=== PATIENT | female | born 1975 | race Caucasian/White ===

== ENCOUNTER 2019-06-21 16:54 | Emergency (ER) | payer OTHER, SELFPAY ==
--- NOTE | ~2019-06-21 | CT_ITS ---
EXAMINATION: CT abdomen pelvis w con EXAM DATE: 06/21/2019 19:07 INDICATION: Nausea vomiting diarrhea. Right lower quadrant pain. TECHNIQUE: Spiral CT of the abdomen and pelvis was performed following intravenous injection of 100 m L Omnipaque 350. Axial, coronal and sagittal images were reviewed. The dose-length product (DLP) fo r this examination was 446.39 mGy-cm. The exposure was tailored according to patient size (auto mA e xposure control), and iterative reconstruction (ASIR) was used as additional dose reduction technique . There is no prior study for comparison. FINDINGS: The liver, spleen, adrenal glands and pancreas are unremarkable. Gallbladder is unremarkab le. No biliary obstruction. Portal and splenic veins are patent. Kidneys enhance symmetrically. T here is no hydronephrosis. The uterus is anteverted and morphologically normal. The bladder is un remarkable. There is no retroperitoneal or pelvic lymphadenopathy. There is mild scattered arterio sclerotic disease. The appendix is normal. The stomach and small bowel are unremarkable. There is expected amount of c olonic stool. No free intraperitoneal gas. The heart is normal in size. There are no pericardial or pleural effusions. The lung bases are unremarkable. There are no osteoblastic or osteolytic les ions identified. Fusion, laminectomies L5-S1. IMPRESSION: 1. No acute intra-abdominal findings. Reviewed, dictated and finalized at location A.
[2019-06-21 17:01] VITALS: BP 113/78; PULSE 80; RESP 18; TEMP 36.9; O2SAT 100
--- NOTE | 2019-06-21 17:14 | ED.NAVMDI ---
HPI - Nausea/Vomiting/Diarrhea General Chief complaint: Nausea/Vomiting/Diarrhea <Gris Muñiz PA-C - Last Filed: 06/21/19 20:33> Stated complaint: n/v/back pain <LUKAS Benson Last Filed: 06/21/19 20:33> Time Seen by Provider: 06/21/19 17:03 <LUKAS Benson Last Filed: 06/21/19 20:33> Source: patient <LUKAS Benson Last Filed: 06/21/19 20:33> Mode of arrival: ambulatory <LUKAS Benson Last Filed: 06/21/19 20:33> Limitations: no limitations <LUKAS Benson Last Filed: 06/21/19 20:33> History of Present Illness HPI Narrative: This is a 43 year old female that presents to the ER for N/V/D x 3 days. Reports it has been difficult for her to keep down any liquids or solids. Reports some right sided lower abdominal pain. Reports some chronic diarrhea due to IBS. Reports after she sneezed last night she started to have some right sided mid back pain that has been constant since. Worse with movement. Reports some pain with urination. Denies fever, hematochezia, or hematuria. <Gris Muñiz PA-C - Last Filed: 06/21/19 20:33> Related Data Allergies/Adverse reactions: Allergies Allergy/AdvReac Type Severity Reaction Status Date / Time doxycycline Allergy Mild Unknown Verified 06/21/19 17:25 <Gris Muñiz PA-C - Last Filed: 06/21/19 20:33> Review of Systems Review of Systems: Narrative: CONSTITUTIONAL: Denies fever, chills GASTROINTESTINAL: Reports abdominal pain, nausea, vomiting, and diarrhea. GENITOURINARY: Reports dysuria. Denies hematuria. MUSCULOSKELETAL: Reports back pain, joint pain, and myalgia. NEUROLOGIC: Denies numbness, or weakness. <LUKAS Benson Last Filed: 06/21/19 20:33> All systems reviewed & are unremarkable except as noted in HPI and below <LUKAS Benson Filed: 06/21/19 20:33> [facility] Past Medical History Medical History: Medical History (Updated 06/21/19 @ 19:56 by Gris Muñiz PA-C) Irritable bowel syndrome <Gris Muñiz PA-C - Last Filed: 06/21/19 20:33> Surgical History Surgical History: Surgical History (Updated 06/21/19 @ 17:15 by Gris Muñiz PA-C) History of spinal fusion History of tubal ligation <Gris Muñiz PA-C - Last Filed: 06/21/19 20:33> Social History Social History: Social History (Updated 06/21/19 @ 17:15 by Gris Muñiz PA-C) Smoking status: Current every day smoker Substance use: never Gender identity (if verbalized by the patient): Female <Gris Muñiz PA-C - Last Filed: 06/21/19 20:33> Exam Narrative: Exam Narrative: GENERAL: Well-appearing, well-nourished, and in no acute distress. HEAD: Normocephalic, atraumatic. EYES: EOMI. CHEST: Clear to auscultation. No respiratory distress. No wheezes rales or rhonchi HEART: Regular rate and rhythm. No murmur heard. Normal peripheral pulses. ABDOMEN: Soft, nondistended, normal active bowel sounds. Mild tenderness to palpation in the RLQ, without guarding EXTREMITIES: Normal range of motion. No edema. SKIN: Warm, dry, no rash. NEURO: No focal deficits. Alert and oriented x3. PSYCH: Normal mood and affect <Gris Muñiz PA-C - Last Filed: 06/21/19 20:33> Course Vital Signs Vital signs: Vital Signs Temperature 36.9 C 06/21/19 17:01 Pulse Rate 80 06/21/19 17:01 Respiratory Rate 18 06/21/19 17:01 Blood Pressure 113/78 06/21/19 17:01 Pulse Oximetry 100 06/21/19 17:01 Temperature 36.9 C 06/21/19 17:01 Pulse Rate 80 06/21/19 20:54 Respiratory Rate 16 06/21/19 20:54 Blood Pressure 142/74 H 06/21/19 20:54 Pulse Oximetry 98 06/21/19 20:54 <Gris Muñiz PA-C - Last Filed: 06/21/19 20:33> Vital Signs Temperature 36.9 C 06/21/19 17:01 Pulse Rate 80 06/21/19 17:01 Respiratory Rate 18 06/21/19 17:01 Blood Pressure 113/78 06/21/19 17:01 Pulse Oximetry 100 06/21/19 17:01 [facility]
[2019-06-21 17:30] LABS: Basophils Percent Auto 0.3 % (0.2-1.2); Hematocrit 47.3 % (37.0-47.0); Hemoglobin 15.5 g/dL (12.0-15.0); Immature Granulocyte Absolute 0.03 K/mm3 (0.00-0.031); Immature Granulocyte Percent A 0.3 % (0-0.5); Lymphocytes Absolute Auto 2.78 K/mm3 (0.9-3.2); Lymphocytes Percent Auto 26.2 % (18.3-44.2); Mean Corpuscular HGB Conc 32.8 g/dl (32-36); Mean Corpuscular Hemoglobin 29.6 pg (26-34); Mean Corpuscular Volume 90.3 fl (80-100); Mean Platelet Volume 10.6 fl (7.4-10.4); Monocytes Absolute Auto 0.9 K/mm3 (0.1-0.6); Monocytes Percent Auto 8.5 % (2.6-8.5); Neutrophils Absolute Auto 6.9 K/mm3 (1.3-6.7); Neutrophils Percent Auto 64.7 % (45.5-73.1); Platelet Count Result 395 k/mm3 (150-375); Red Blood Count 5.24 M/mm3 (4.2-5.4); Red Cell Distribution Width 13.2 % (11.5-14.5); White Blood Count 10.6 K/mm3 (4.5-10.0)
[2019-06-21 17:40] LABS: Add Urine Microscopic? YES; Appearance Urine Cloudy (Clear); Bacteria Urine 4+ /hpf; Bilirubin Urine Negative (Negative); Blood Urine 2+ (Negative); Color Urine Yellow (Yellow); Glucose Urine UA Negative (Negative); Ketones Urine 1+ mg/dL (Negative); Leukocyte Esterase Ur Trace LEU/UL (Negative); Mucus Urine Heavy /lpf; Nitrate Urine Negative (Negative); Protein Urine 1+ mg/dL (Negative); Specific Grav Ur 1.029 (1.001-1.035); Squamous Epithelial Cell Urine Many /hpf (Few); Urobilinogen Urine Negative mg/dL (<2.0)
[2019-06-21] MEDS: SODIUM CHLORIDE 0.9% IV 1,000 ML 999 ML IV CONT (18:07)
[2019-06-21] MEDS: ONDANSETRON INJ 4 MG/2 ML VIAL IV PUSH (18:07)
[2019-06-21] MEDS: MORPHINE SULFATE 4 MG/ML INJ IV PUSH (18:07)
[2019-06-21 18:59] LABS: Alanine Aminotransferase 13 U/L (4-35); Alkaline Phosphatase 73 U/L (38-126); Aspartate Amino Transferase 19 U/L (14-36); Bilirubin,Total 0.6 mg/dL (0.2-1.3); Blood Urea Nitrogen 16 mg/dL (7-17); Calcium 8.5 mg/dL (8.4-10.2); Carbon Dioxide 19 mmol/L (22-30); Chloride 107 mmol/L (98-107); Estimated CRCL calculation 86 ml/min; Estimated Glomerular Filt Rate > 60; Glucose 85 mg/dL (65-105); Lipase 88 U/L (23-300); Potassium 3.5 mmol/L (3.4-5.0); Sodium 136 mmol/L (137-145)
[2019-06-21 19:01] LABS: Estimated CRCL calculation 76 ml/min; Estimated Glomerular Filt Rate > 60
[2019-06-21] MEDS: SODIUM CHLORIDE 0.9% IV 1,000 ML 999 ML (19:07)
[2019-06-21 20:54] VITALS: BP 142/74; PULSE 80; RESP 16; O2SAT 98
== END 2019-06-21 20:55 | disposition home or self-care (01) ==
PROVIDERS: Physician Assistant; Emergency Provider Emergency Medicine
DX: K52.9 Noninfective gastroenteritis and colitis, unspecified (principal); N30.00 Acute cystitis without hematuria; S29.012A Strain of muscle and tendon of back wall of thorax, initial encounter; Z98.1 Arthrodesis status; F17.200 Nicotine dependence, unspecified, uncomplicated; K58.0 Irritable bowel syndrome with diarrhea; X50.9XXA Other and unspecified overexertion or strenuous movements or postures, initial encounter
CPT/HCPCS: 36415; 74177; 80053; 81001; 81025; 83690; 85025; 87086; 87088; 96374; 96375; 99284; J0131; J2270; J2405; J7030; Q9967